=== PATIENT | female | born 1975 | race Caucasian/White ===

== ENCOUNTER → 2020-01-11 | Outpatient (CLI) | payer OTHER ==
[~2020-01-11] MED LIST: MELA10TA PO; TRAZ50TA66 PO
== END | disposition home or self-care (01) ==
LOC: STAR 10:32
PROVIDERS: ATTEND Surgery
DX: Z01.812 Encounter for preprocedural laboratory examination (principal); Z20.828 Contact with and (suspected) exposure to other viral communicable diseases
CPT/HCPCS: 36415; 87635

== ENCOUNTER 2020-01-15 06:08 | Day surgery (SDC) | payer OTHER ==
[2020-01-11 10:56] VITALS: BP 125/75
[~2020-01-15] VITALS: Ht 167.6 cm; Wt 101.0 kg
[2020-01-15] MEDS ORDERED: EPINEPHRINE 1 MG/ML, 1ML ONE (06:50)
[2020-01-15] MEDS ORDERED: BUPIVACAINE/PF 0.25% ONE (06:50)
[2020-01-15] MEDS ORDERED: OXYB10TA26 PO (06:51)
[2020-01-15] MEDS ORDERED: MONT5TAB9 PO (06:51)
[2020-01-15] MEDS ORDERED: PANT20TA4 PO (06:51)
[2020-01-15] MEDS ORDERED: PROBIOTIC PO (06:51)
[2020-01-15] MEDS ORDERED: CETI-299 PO (06:51)
[2020-01-15] MEDS ORDERED: FAMO20TA3 PO (06:51)
[2020-01-15] MEDS ORDERED: MIDAZOLAM 1 MG/ML, 2ML ONE (06:54)
[2020-01-15] MEDS ORDERED: FENTANYL PF 250 MCG/5ML ONE (06:55)
[2020-01-15] MEDS ORDERED: CHLORHEXIDINE 15 ML UDC MM ONE (07:00)
[2020-01-15] MEDS ORDERED: LACTATED RINGERS 1,000 ML IV SCH (07:00)
[2020-01-15] MEDS ORDERED: hydrALAzine 20 MG/ML, 1ML IV PRN (07:30)
[2020-01-15] MEDS ORDERED: ACETAMINOPHEN 325 MG TABLET PO PRN (07:30)
[2020-01-15] MEDS ORDERED: MEPERIDINE/PF 25MG/0.5ML IVPush PRN (07:30)
[2020-01-15] MEDS ORDERED: ONDANSETRON 2MG/ML, 2ML IVPush PRN (07:30)
[2020-01-15] MEDS ORDERED: OXYcodone 5 MG/5 ML ORAL.SOL UDC PO PRN (07:30)
[2020-01-15] MEDS ORDERED: KETOROLAC 30 MG/1 ML IVPush PRN (07:30)
[2020-01-15] MEDS ORDERED: METHOCARBAMOL 1,000 MG in DEXTROSE 5% 100 ML IV PRN (07:30)
[2020-01-15] MEDS ORDERED: LABETALOL 5MG/ML, 20ML IV PRN (07:30)
[2020-01-15] MEDS ORDERED: HYDROmorphone 1 MG/ML, 1ML INJ IVPush PRN (07:30)
[2020-01-15] MEDS ORDERED: PROMETHAZINE 25 MG SUPP PR PRN (07:30)
[2020-01-15] MEDS ORDERED: LORazepam 2 MG/ML, 1ML IVPush PRN (07:30)
[2020-01-15] MEDS ORDERED: NEOSTIGMINE 1 MG/ML, 10ML ONE (07:40)
[2020-01-15] MEDS ORDERED: ONDANSETRON 2MG/ML, 2ML ONE (07:40)
[2020-01-15] MEDS ORDERED: PROPOFOL 10 MG/ML, 20ML ONE (07:40)
[2020-01-15] MEDS ORDERED: SUCCINYLCHOLINE 20 MG/ML, 10ML ONE (07:40)
[2020-01-15] MEDS ORDERED: GLYCOPYRROLATE 0.2MG/1ML, 5ML ONE (07:40)
[2020-01-15] MEDS ORDERED: ROCURONIUM 10MG/ML,5ML ONE (07:40)
[2020-01-15] MEDS ORDERED: DEXAMETHASONE 4 MG/ML, 1ML ONE (07:40)
[2020-01-15] MEDS ORDERED: CEFAZOLIN 1,000 MG ONE (07:40)
[2020-01-15] MEDS ORDERED: KETOROLAC 30 MG/1 ML ONE (08:23)
[2020-01-15] MEDS ORDERED: ACETAMINOPHEN 650 MG/20.3 ML UDC ONE (08:23)
[2020-01-15] MEDS ORDERED: FENTANYL PF 100 MCG/2ML ONE (08:23)
[2020-01-15] MEDS ORDERED: OXYcodone 5 MG/5 ML ORAL.SOL UDC ONE (08:23)
[2020-01-15] MEDS: FENTANYL PF 100 MCG/2ML IV PRN ×2 (08:28→08:35)
== END 2020-01-15 09:55 | disposition home or self-care (01) ==
LOC: OUT 06:08
PROVIDERS: ATTEND Surgery
DX: K42.9 Umbilical hernia without obstruction or gangrene (principal); K21.9 Gastro-esophageal reflux disease without esophagitis; F17.210 Nicotine dependence, cigarettes, uncomplicated; Z79.899 Other long term (current) drug therapy; Z98.1 Arthrodesis status; Z90.710 Acquired absence of both cervix and uterus; Z98.890 Other specified postprocedural states
CPT/HCPCS: 49585; C1781; J0171; J0330; J0690; J1100; J1885; J2250; J2405; J2704; J2710; J3010; J7120